=== PATIENT | female | born 1955 ===

== ENCOUNTER 2024-10-16 09:30 | Outpatient (RCR) | payer MEDICARE, BC, SELFPAY ==
[2024-06-19 12:03] VITALS: PULSE 110
== END 2024-10-16 23:59 | disposition home or self-care (01) ==
LOC: ANHCPREHAB 09:30
DX: J44.9 Chronic obstructive pulmonary disease, unspecified (principal)
CPT/HCPCS: 94625

== ENCOUNTER 2024-11-16 09:30 | Outpatient (RCR) | payer MEDICARE, BC, SELFPAY ==
[2024-10-18 00:06] VITALS: PULSE 110
== END 2024-11-16 10:30 | disposition home or self-care (01) ==
LOC: ANHCPREHAB 09:30
DX: J44.9 Chronic obstructive pulmonary disease, unspecified (principal)
CPT/HCPCS: 94625